=== PATIENT | male | born 1995 | race Caucasian/White ===

== ENCOUNTER 2016-10-14 21:38 | Emergency (ER) | payer SELFPAY ==
[2016-10-14 22:14] LABS: Hematocrit 49 % (42-52); Hemoglobin 16.5 g/dl (14.0-18.0); Mean Corpuscular HGB Conc 34 g/dl (31-36); Mean Corpuscular Hemoglobin 31 pg (27-31); Mean Corpuscular Volume 92 fL (80-94); Mean Platelet Volume 7 um3 (7.4-10.4); Red Cell Distribution Width 13 % (10.5-15); White Blood Count 10.3 10^3/ul (3.5-10.8)
[2016-10-14 22:29] LABS: ALT 211 U/L (7-52); AST 49 U/L (13-39); Albumin 5.3 g/dL (3.2-5.2); Alkaline Phosphatase 58 U/L (34-104); Anion Gap 8 mmol/L (2-11); BUN/Creatinine Ratio 11.3 (8-20); Blood Urea Nitrogen 14 mg/dL (6-24); CO2 Carbon Dioxide 28 mmol/L (22-32); Calcium 9.4 mg/dL (8.6-10.3); Chloride 105 mmol/L (101-111); EGFR African American 94.6 (>60); EGFR Non-African American 73.6 (>60); Glucose 89 mg/dL (70-100); Potassium 3.9 mmol/L (3.5-5.0); Sodium 141 mmol/L (133-145); Total Protein 8.3 g/dL (6.4-8.9)
[2016-10-14 22:44] LABS: Acetaminophen < 15 mcg/mL; Alcohol 323 mg/dL (<10); Salicylate < 2.50 mg/dL (<30)
[2016-10-14 22:55] LABS: TSH (Thyroid Stimulating Horm) 0.39 mcIU/mL (0.34-5.60)
--- NOTE | 2016-10-15 00:18 | ED ---
Rj Saucedo Aidan, scribed for Titi Walton MD on 10/14/16 at 2200 . Substance Abuse/Use - HPI Summary HPI Summary: 21 y/o male presents to the ED via EMS for an acute episode of severe alcohol intoxication. He was found by police just CROSS ROLL[place] unresponsive, passed out in his own vomit and urine. On arrival, he was cooperative, friendly and verbal. He claims to remember blacking in during a wine tour, but not much else. Pt denies any other drug use. No Si/HI. - History Of Current Complaint Chief Complaint: EDSubstanceAbuse Stated Complaint: 2208 Time Seen by Provider: 10/14/16 21:40 Hx Obtained From: Patient, EMS - and police Onset/Duration of Drug/ETOH Abuse: Hours - incident of binge drinking today Ingestion History: Type/Name Of Drug - alcohol, Amount Ingested - unknown, Approximate Time Of Ingestion - unknown Overdose Characteristics: Oral Timing Of Abuse: Binge Use - episode of binge use today is noted Severity Initially: Severe - Pt was unconscious and unresponsive when found by police Severity Currently: Moderate - Pt is currently responsive, alert, and friendly. Character: Other - Pt is currently cooperative, appreciative, and responsive Aggravating Factor(s): Other - unknown Alleviating Factor(s): Other - unknown, however, time will sober him up Associated Signs And Symptoms: Vomiting, Other: - urinary incontinence, memory loss - Risk Factor(s) Completed Suicide Risk Factors: Male, White Ethiopian - Allergies/Home Medications Allergies/Adverse Reactions: Allergies Allergy/AdvReac Type Severity Reaction Status Date / Time No Known Allergies Allergy Verified 10/14/16 22:01 PMH/Surg Hx/FS Hx/Imm Hx Endocrine/Hematology History: Denies: Hx Anticoagulant Therapy, Hx Blood Disorders, Hx Blood Transfusions, Hx Bone Marrow Disease, Hx Diabetes, Hx Systemic Lupus Erythematosus, Hx Sickle Cell Disease, Hx Thyroid Disease, Hx Anemia, Hx Unexplained Bleeding, Other Endocrine/Hematological Disorders Cardiovascular History: Denies: Hx Aneurysm, Hx Angina, Hx Angioplasty, Hx Atrial Fibrillation, Hx Auto Implanted Cardiovert Defib, Hx Cardiac Arrest, Hx Cardiomegaly, Hx Congenital Heart Disease, Hx Congestive Heart Failure, Hx Coronary Artery Disease, Hx Deep Vein Thrombosis, Hx Embolism, Hx Hypercholesterolemia, Hx Hypotension, Hx Hypertension, Hx Myocardial Infarction, Hx Pacemaker/ICD, Hx Peripheral Vascular Disease, Hx Rheumatic Fever, Hx Syncope, Hx Valvular Heart Disease, Other Cardiovascular Problems/Disorders Respiratory History: Denies: Hx Asthma, Hx Bronchopulmonary Dysplasia, Hx Chronic Bronchitis, Hx Chronic Obstructive Pulmonary Disease (COPD), Hx Cystic Fibrosis, Hx Lung Cancer , Hx Pleural Effusion, Hx Pneumonia, Hx Pulmonary Edema, Hx Pulmonary Embolism, Hx Seasonal Allergies, Hx Sleep Apnea, Other Respiratory Problems/Disorders GI History: Denies: Hx Cirrhosis, Hx Crohn's Disease, Hx Diverticulosis, Hx Gall Bladder Disease, Hx Gastroesophageal Reflux Disease, Hx Gastrointestinal Bleed, Hx Hiatal Hernia, Hx Irritable Bowel, Hx Jaundice, Hx Obstructive Bowel, Hx Ileostomy, Hx Pyloric Stenosis, Hx Ulcer, Hx Urosepsis, Other GI Disorders Neurological History: Denies: Hx CVA, Hx Dementia, Hx Developmental Delay, Hx Headaches, Hx Migraine, Hx Nerve Disease, Hx Peripheral Neuropathy, Hx Seizures, Hx Spinal Cord Injury, Hx Transient Ischemic Attacks (TIA), Other Neuro Impairments/ Disorders Psychiatric History: Denies: Hx Anxiety, Hx Attention Deficit Hyperactivity Disorder, Hx Autism, Hx Eating Disorder, Hx Oppositional Sanders Disorder, Hx Depression, Hx Panic Disorder, Hx Post Traumatic Stress Disorder, Hx Inpatient Treatment, Hx Community Mental Health Tx, Hx Schizophrenia, Hx Bipolar Disorder, Hx Suicide Attempt, Hx of Violent Episodes Against Others, Hx Substance Abuse, Other Psychiatric Issues/Disorders - Family History Known Family History: Positive: Diabetes - Social History Occupation: Student Lives: Alone - Pt lives with other students at [employer] [facility] [employer] Alcohol Use: Weekly Substance Use Type: Reports: None Smoking Status (MU): Never Smoked Tobacco Have You Smoked in the Last Year: Yes - couple cigars last week Review of Systems Constitutional: Negative Eyes: Negative ENT: Negative Cardiovascular: Negative Respiratory: Negative Positive: Vomiting. Negative: Abdominal Pain, Diarrhea, Nausea Positive: incontinence - urinary. Negative: burning, dysuria, discharge, frequency, flank pain, hematuria, pain, urgency Musculoskeletal: Negative Skin: Negative Neurological: Other - intoxication, memory loss, LOC from intoxication Negative: Headache, Weakness, Paresthesia, Numbness, Syncope, Slurred Speech Psychological: Normal All Other Systems Reviewed And Are Negative: Yes Physical Exam Triage Information Reviewed: Yes Vital Signs On Initial Exam: Initial Vitals Temp Pulse Resp BP Pulse Ox 98.6 F 97 16 150/83 100 10/14/16 21:57 10/14/16 21:57 10/14/16 21:57 10/14/16 21:57 10/14/16 21:57 Vital Signs Reviewed: Yes Appearance: Positive: Well-Appearing, No Pain Distress - aob Skin: Positive: Warm Head/Face: Positive: Normal Head/Face Inspection Eyes: Positive: SERENA ENT: Positive: Hearing grossly normal Neck: Positive: Supple Respiratory/Lung Sounds: Positive: Clear to Auscultation, Breath Sounds Present Cardiovascular: Positive: RRR Abdomen Description: Positive: Nontender, Soft Bowel Sounds: Positive: Present Musculoskeletal: Positive: Strength/ROM Intact Neurological: Positive: Sensory/Motor Intact Diagnostics - Vital Signs Vital Signs Temp Pulse Resp BP Pulse Ox 10/14/16 21:57 98.6 F 97 16 150/83 100 - Laboratory Lab Results: Lab Results 10/14/16 10/14/16 Range/Units 22:05 22:05 WBC 10.3 (3.5-10.8) 10^3/ul RBC 5.30 (4.0-5.4) 10^6/ul Hgb 16.5 (14.0-18.0) g/dl Hct 49 (42-52) % MCV 92 (80-94) fL MCH 31 (27-31) pg MCHC 34 (31-36) g/dl RDW 13 (10.5-15) % Plt Count 198 (150-450) 10^3/ul MPV 7 L (7.4-10.4) um3 Neut % (Auto) 40.6 (38-83) % Lymph % (Auto) 47.5 H (25-47) % [place] % (Auto) 8.5 (1-9) % Eos % (Auto) 2.8 (0-6) % Baso % (Auto) 0.6 (0-2) % Absolute Neuts (auto) 4.2 (1.5-7.7) 10^3/ul Absolute Lymphs (auto) 4.9 H (1.0-4.8) 10^3/ul Absolute Monos (auto) 0.9 H (0-0.8) 10^3/ul Absolute Eos (auto) 0.3 (0-0.6) 10^3/ul Absolute Basos (auto) 0.1 (0-0.2) 10^3/ul Absolute Nucleated RBC 0.01 10^3/ul Nucleated RBC % 0.1 Sodium 141 (133-145) mmol/L Potassium 3.9 (3.5-5.0) mmol/L Chloride 105 (101-111) mmol/L Carbon Dioxide 28 (22-32) mmol/L Anion Gap 8 (2-11) mmol/L BUN 14 (6-24) mg/dL Creatinine 1.24 H (0.67-1.17) mg/dL Est GFR ( Amer) 94.6 (>60) Est GFR (Non-Af Amer) 73.6 (>60) BUN/Creatinine Ratio 11.3 (8-20) Glucose 89 (70-100) mg/dL Calcium 9.4 (8.6-10.3) mg/dL Total Bilirubin 0.30 (0.2-1.0) mg/dL AST 49 H (13-39) U/L ALT 211 H (7-52) U/L Alkaline Phosphatase 58 (34-104) U/L Total Protein 8.3 (6.4-8.9) g/dL Albumin 5.3 H (3.2-5.2) g/dL Globulin 3.0 (2-4) g/dL Albumin/Globulin Ratio 1.8 (1-3) TSH 0.39 (0.34-5.60) mcIU/mL Salicylates < 2.50 (<30) mg/dL Acetaminophen < 15 mcg/mL Serum Alcohol 323 H (<10) mg/dL Result Diagrams: 10/14/16 22:05 10/14/16 22:05 Lab Statement: Any lab studies that have been ordered have been reviewed, and results considered in the medical decision making process. Course/Dx - Course Course Of Treatment: 21 y/o male presents to the ED via EMS for an acute episode of severe alcohol intoxication. According to police, he was found unconscious, passed out in his own vomit and urine. On arrival, he was verbal, responsive, and friendly. We will have him monitored in the ED while he rosalind up. - Diagnoses Provider Diagnoses: Alcohol intoxication Discharge - Discharge Plan Condition: Stable Disposition: HOME Discharge Disposition Comment: Please follow up with your primary care provider. Patient Education Materials: Alcohol Intoxication (ED) The documentation as recorded by the Rj batres Aidan accurately reflects the service I personally performed and the decisions made by , Titi Walton MD.
[2016-10-15 06:14] VITALS: BP 128/78
== END 2016-10-15 06:09 | disposition home or self-care (01) ==
LOC: ED 21:38
DX: F10.129 Alcohol abuse with intoxication, unspecified (principal)
CPT/HCPCS: 36415; 80053; 80320; 80329; 84443; 85025; 99282; G0480